=== PATIENT | female | born 1995 | race Caucasian/White ===

== ENCOUNTER 2020-10-31 11:46 | Outpatient (REF) | payer OTHER, SELFPAY ==
[2020-10-31 12:03] LABS: COVID-19 Test Negative (Negative); IDNOW Serial# 55D5AD1C
== END 2020-10-31 11:47 | disposition home or self-care (01) ==
LOC: HO.EMPCOV 11:46
PROVIDERS: Visit Provider Internal Medicine
DX: Z20.828 Contact with and (suspected) exposure to other viral communicable diseases (principal)
CPT/HCPCS: 87635; C9803

== ENCOUNTER 2020-12-15 10:46 | Outpatient (REF) | payer OTHER, SELFPAY ==
[2020-12-15 13:56] LABS: MANUAL DIFF FLAG NO
[2020-12-15 14:11] LABS: Basophils Percent Auto 0.6 % (0-2); Eosinophils Absolute Auto 0.1 X10*3/uL (0.0-0.4); Eosinophils Percent Auto 1.8 % (0-4); Hematocrit 37.3 % (37-47); Hemoglobin 12.1 g/dl (12.0-16.0); Imm Gran Abs Auto 0.01 X10*3/uL (0.00-0.03); Imm Gran Pct Auto 0.2 % (0.0-0.4); Lymphocytes Absolute Auto 2.3 X10*3/uL (1.2-4.9); Lymphocytes Percent Auto 45.3 % (20-40); Mean Corpuscular HGB Conc 32.4 g/dl (31.0-35.0); Mean Corpuscular Hemoglobin 28.2 pg (27.0-33.0); Mean Corpuscular Volume 86.9 fL (80-98); Mean Platelet Volume 11.3 fL (9.4-12.3); Monocytes Absolute Auto 0.3 X10*3/uL (0.1-1.2); Monocytes Percent Auto 6.1 % (2-11); Neutrophils Absolute Auto 2.3 X10*3/uL (2.0-8.3); Platelet Count 216 X10*3/uL (160-400); Red Blood Count 4.29 X10*6/uL (4.20-5.50); Red Cell Distribution Width 12.3 % (11.0-16.0); White Blood Count 5.1 X10*3/uL (4.8-10.8)
[2020-12-15 14:53] LABS: Free T4 (Free Thyroxine) 0.87 ng/dL (0.71-1.85); Thyroid Stimulating Hormone 1.01 uIU/mL (0.32-4.0); Vitamin D 25-OH Total 15.4 ng/mL (>30)
[2020-12-15 14:56] LABS: Alanine Aminotransferase 11 U/L (0-31); Albumin Level 4.2 g/dL (3.5-5.0); Alkaline Phosphatase 68 U/L (39-117); Anion Gap 12 (12-20); Aspartate Amino Transferase 15 U/L (5-31); Bilirubin Total < 0.2 mg/dL (0.0-1.0); Blood Urea Nitrogen 11 mg/dL (9-16); Calcium 8.9 mg/dL (8.4-10.2); Carbon Dioxide 27 mmol/L (22-29); Chloride 104 mmol/L (96-108); Cholesterol 220 mg/dL; Estimated Glomerular Filt Rate > 60; Glucose Fasting 81 mg/dL (60-99); HDL Cholesterol 72 mg/dL; LDL Cholesterol Calculated 119 mg/dl; Sodium 139 mmol/L (135-145); Total Protein 6.9 g/dL (6.5-8.0); Triglycerides 149 mg/dL
== END 2020-12-15 10:47 | disposition home or self-care (01) ==
LOC: HO.10HDL 10:46
PROVIDERS: Visit Provider Internal Medicine
DX: Z00.00 Encounter for general adult medical examination without abnormal findings (principal); E55.9 Vitamin D deficiency, unspecified; R63.5 Abnormal weight gain
CPT/HCPCS: 36415; 80053; 80061; 82306; 84439; 84443; 85025

== ENCOUNTER → 2021-06-22 07:59 | Outpatient (BNVA) | payer OTHER, SELFPAY | PROVIDERS: Visit Provider Internal Medicine | DX: Z76.89 Persons encountering health services in other specified circumstances (principal) | CPT/HCPCS: 99203 ==

== ENCOUNTER 2021-07-24 17:00 | Outpatient (RCR) | payer OTHER, SELFPAY ==
--- NOTE | 2021-06-26 18:26 | MHC.PT.EP ---
[facility] [place] [facility] [place] [facility] [place] Office [address] Spann [address] [phone] F: [phone] F: [phone] F: [phone] F: [phone] Physical Therapy Plan of Care Date of Evaluation: Date of Surgery: N/A Diagnosis: L shoulder derangement/cervical strain Assessment: Pt is a 25yo F who presents to PT after getting injured at work. She is TTP with pain localized to L pec. She presents with current impairments in pain, ROM, soft tissue restricions, strength, endurance, and posture. She is limited functionally by reaching her arm across her body and ADLs. Her signs and symptoms may be consistent with a pec strain. She is an excellent candidate for skilled PT services to address current impairments and facilitate return to pain-free PLOF. Frequency and Duration: The patient will be seen 2x/week for 4 weeks Short Term Goals: Pt will be I with HEP to promote self management of symptoms Pt will improve postural awareness throughout work related tasks Mcfp Goals: Pt will demonstrate full, pain-free strength and ROM throughout L shoulder Pt will perform ADLs with pain < 2/10 consistently Pt will demonstrate improvements in functional mobility as evidenced by statistically significant improvement in SPADI outcome measure. Treatment Plan: Modalities to reduce pain, spasms and effusion. Manual therapy to restore motion and function. Therapeutic exercise to improve strength and flexibility. Neuromuscular re-education for posture and balance. Therapeutic activities to return to functional activities of daily living. Electronically signed by: Shana Parmar, PT, DPT Please sign and return to therapist. Thank you for your referral.
--- NOTE | 2021-07-27 15:21 | MHC.PT.DC ---
[facility] [place] [facility] [place] Office [place] Office [address] Luis Carlos Spann [address] [phone] F: [phone] F: [phone] F: [phone] F: [phone] Physical Therapy Discharge Report Diagnosis: L shoulder derangement/cervical strain Date of Surgery: N/A Date of Evaluation: 06/26/21 Date of Discharge: 07/27/21 Treatments to Date: 6 Cancellations to Date: No Shows to Date: Discharge Status: Achieved Goals Improved Function Independent with HEP Discharge Summary: Pt is compliant with HEP and has made excellent progress since SOC. She demonstrates a decrease in pain and improvements in ROM and strength throughout L shoulder. She has improved her SPADI outcome measure from 50/130 on initial evaluation to 2/130 on 07/24/21. She is being D/C from skilled PT services as she has reached her STGs and LTGs and is I with her HEP. She has printed copy of HEP and RTB. Pt reports no further questions or concerns for PT at this time. Electronically signed by: Shana Parmar, PT, DPT Please sign and return to therapist. Thank you for your referral.
== END 2021-07-27 15:22 | disposition home or self-care (01) ==
LOC: HO.PT 17:00
PROVIDERS: Visit Provider Physician Assistant Medical
DX: S16.1XXD Strain of muscle, fascia and tendon at neck level, subsequent encounter (principal); S49.92XD Unspecified injury of left shoulder and upper arm, subsequent encounter
CPT/HCPCS: 97110; 97140; 97161

== ENCOUNTER 2022-01-18 07:55 | Outpatient (REF) | payer OTHER, SELFPAY ==
[2022-01-18 08:08] LABS: MANUAL DIFF FLAG NO
[2022-01-18 08:48] LABS: Basophils Percent Auto 0.6 % (0-2); Eosinophils Absolute Auto 0.1 X10*3/uL (0.0-0.4); Eosinophils Percent Auto 2.1 % (0-4); Hematocrit 40.5 % (37.0-47.0); Hemoglobin 13.3 g/dl (12.0-16.0); Imm Gran Abs Auto 0.01 X10*3/uL (0.00-0.03); Imm Gran Pct Auto 0.1 % (0.0-0.4); Lymphocytes Absolute Auto 2.6 X10*3/uL (1.2-4.9); Lymphocytes Percent Auto 38.7 % (20-40); Mean Corpuscular HGB Conc 32.8 g/dl (31.0-35.0); Mean Corpuscular Hemoglobin 28.5 pg (27.0-33.0); Mean Corpuscular Volume 86.7 fL (80.0-98.0); Mean Platelet Volume 11.1 fL (9.4-12.3); Monocytes Absolute Auto 0.5 X10*3/uL (0.1-1.2); Monocytes Percent Auto 7.3 % (2-11); Neutrophils Absolute Auto 3.4 x10*3/uL (2.0-8.3); Neutrophils Percent Auto 51.2 % (45-73); Platelet Count 276 X10*3/uL (160-400); Red Blood Count 4.67 X10*6/uL (4.20-5.50); Red Cell Distribution Width 12.1 % (11.0-16.0); White Blood Count 6.7 X10*3/uL (4.8-10.8)
[2022-01-18 10:11] LABS: Alanine Aminotransferase 10 U/L (0-31); Albumin Level 4.5 g/dL (3.5-5.0); Alkaline Phosphatase 67 U/L (39-117); Anion Gap 14 (12-20); Aspartate Amino Transferase 15 U/L (5-31); Bilirubin Total 0.5 mg/dL (0.0-1.0); Blood Urea Nitrogen 14 mg/dL (9-16); Calcium 9.8 mg/dL (8.4-10.2); Carbon Dioxide 23 mmol/L (22-29); Chloride 105 mmol/L (96-108); Cholesterol 258 mg/dL; Estimated Glomerular Filt Rate > 60; Glucose Fasting 80 mg/dL (60-99); HDL Cholesterol 76 mg/dL; LDL Cholesterol Calculated 157 mg/dl; Potassium 4.3 mmol/L (3.3-5.1); Sodium 138 mmol/L (135-145); Total Protein 7.3 g/dL (6.5-8.0); Triglycerides 128 mg/dL
[2022-01-18 10:37] LABS: Thyroid Stimulating Hormone 1.12 uIU/mL (0.32-4.0); Vitamin D 25-OH Total 14.6 ng/mL (>30)
== END 2022-01-18 07:56 | disposition home or self-care (01) ==
LOC: HO.LAB 07:55
PROVIDERS: PCP Internal Medicine; Visit Provider Internal Medicine
DX: Z00.00 Encounter for general adult medical examination without abnormal findings (principal); E55.9 Vitamin D deficiency, unspecified
CPT/HCPCS: 36415; 80053; 80061; 82306; 84443; 85025

== ENCOUNTER 2022-04-04 14:36 | Outpatient (REF) | payer OTHER, SELFPAY | END 2022-04-04 14:37 | disposition home or self-care (01) | LOC: HO.LAB 14:36 | PROVIDERS: PCP Internal Medicine; Visit Provider Obstetrics & Gynecology | DX: Z01.419 Encounter for gynecological examination (general) (routine) without abnormal findings (principal) | CPT/HCPCS: 88142 ==

== ENCOUNTER 2022-07-18 10:08 | Emergency (ER) | payer OTHER, SELFPAY ==
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
[2022-07-18 10:43] VITALS: BP 131/86; PULSE 88; RESP 16; TEMP 36.8; O2SAT 99; BMI 33.7
== END 2022-07-18 16:47 | disposition left against medical advice (07) ==
PROVIDERS: Emergency Provider Emergency Medicine; PCP Internal Medicine
DX: S39.92XA Unspecified injury of lower back, initial encounter (principal); S89.91XA Unspecified injury of right lower leg, initial encounter; V49.9XXA Car occupant (driver) (passenger) injured in unspecified traffic accident, initial encounter; R51.9 Headache, unspecified; Y93.9 Activity, unspecified; Y92.9 Unspecified place or not applicable; Y99.9 Unspecified external cause status
CPT/HCPCS: 70450; 72100; 73562; 99281; 99284

== ENCOUNTER → 2022-08-29 09:15 | Outpatient (RCR) | payer OTHER, SELFPAY ==
[2020-09-21 06:39] LABS: COVID-19 Test Negative (Negative)
[2020-09-27 09:20] LABS: COVID-19 Test Negative (Negative); IDNOW Serial# 55D5AD1C
[2020-10-04 10:27] LABS: COVID-19 Test Negative (Negative)
[2020-10-18 09:28] LABS: COVID-19 Test Negative (Negative); IDNOW Serial# 55D5AD1C
[2020-11-17 09:21] LABS: SARS-COV-2 PCR UMBRL Not Detected
== END | disposition home or self-care (01) ==
LOC: HO.EMPCOV 09-21 06:00
PROVIDERS: Visit Provider Internal Medicine
DX: Z20.828 Contact with and (suspected) exposure to other viral communicable diseases (principal)
CPT/HCPCS: 36415; 87635; C9803; U0003

== ENCOUNTER 2022-11-23 08:18 | Outpatient (REF) | payer OTHER, SELFPAY ==
[2022-11-23 09:43] LABS: Cholesterol 219 mg/dL; HDL Cholesterol 68 mg/dL; LDL Cholesterol Calculated 137 mg/dl; Triglycerides 70 mg/dL
[2022-11-23 10:01] LABS: Vitamin D 25-OH Total 10.8 ng/mL (>30)
== END 2022-11-23 08:19 | disposition home or self-care (01) ==
LOC: HO.LAB 08:18
PROVIDERS: PCP Internal Medicine; Visit Provider Internal Medicine
DX: E78.00 Pure hypercholesterolemia, unspecified (principal); E55.9 Vitamin D deficiency, unspecified
CPT/HCPCS: 36415; 80061; 82306

== ENCOUNTER 2023-06-04 14:53 | Outpatient (AMB) | payer OTHER, SELFPAY ==
--- NOTE | 2023-06-04 14:55 | A.OFFVIS_ITS ---
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 No complaints. Last Pap smear was in 04/01 was negative [facility] Medical History Anal fissure Surgical History [place] teeth extracted Family History Maternal Aunt Breast CA Social History Patient Tobacco Use Status: Never used Tobacco Female Reproductive History Menstrual Age of Menarche: 10 Duration of menses: 3-5 days Date of last menstrual period: 06/04/23 control method: pills Total pregnancies: 0 Date of last pap smear: 04/05/22 (negative) Review of Systems Const All systems reviewed & are unremarkable except as noted in HPI and below Card Reports as per HPI Resp Reports as per HPI GI Reports as per HPI and Reports no additional complaints Reports as per HPI Physical Exam Vital Signs: Last Vital Signs BP 104/76 06/04/23 14:56 BMI result Body Mass Index 35.3 Const General: cooperative, healthy appearing and comfortable Chest Chest palpation & inspection: normal inspection of the chest and normal palpation of entire chest wall Breast/axilla inspection: normal inspection of the breasts and normal inspection of the axillae Breast/axilla palpation: normal palpation of the breasts, normal palpation of the axillae and no axillary lymphadenopathy Resp Effort & Inspection: normal respiratory effort Auscultation: clear to auscultation bilaterally Percussion: percussion normal Cardio Palpation: normal PMI Rate: regular rate Rhythm: regular rhythm Heart sounds: no murmurs and no rubs Peripheral pulses: Peripheral pulses 2+ throughout GI Inspection: Yes normal to inspection Palpation (GI): Soft to palpation, nontender, no guarding, not rigid and No hepatosplenomegaly present Percussion: Yes normal to percussion Auscultation: normal bowel sounds Rectal Exam - Female: deferred General: Yes bladder normal to palpation External Female Exam: No lesion Speculum Exam - Vagina: normal appearance of the vagina, normal palpation, normal vaginal discharge and not erythematous Speculum Exam - Cervix: normal appearance of the cervix and normal palpation Bimanual exam- vagina & uterus: normal bimanual exam, normal palpation, uterine size normal, bladder normal to palpation, consistency normal and normal palpation Bimanual Exam- Adnexa, other: normal adnexae, no masses and no tenderness Assessment & Plan Assessment & Plan (1) Well woman exam: Code(s): Z01.419 - Encounter for gynecological examination (general) (routine) without abnormal findings Plan: Pap smear not indicated this year. Counseled the patient about the recommended dietary allowance of 1000 mg of Calcium & 600 IU of vitamin D. The patient was instructed to perform monthly self-breast exams , to call for any changes in menstrual patterns and to schedule an annual exam in a year; all questions answered and the patient verbalized understanding. Coding Level of Care Code Est Pt Prev Care 18-39y(72213) Diagnoses Well woman exam Z01.419
[2023-06-04 14:56] VITALS: BP 104/76; BMI 35.3
== END 2023-06-04 15:39 | disposition home or self-care (01) ==
LOC: HO.HWS 14:53
PROVIDERS: PCP Internal Medicine; Visit Provider Obstetrics & Gynecology
DX: Z01.419 Encounter for gynecological examination (general) (routine) without abnormal findings (principal)
CPT/HCPCS: 99395

== ENCOUNTER → 2023-06-04 14:53 | Outpatient (BNVA) | payer OTHER, SELFPAY | PROVIDERS: PCP Internal Medicine; Visit Provider Obstetrics & Gynecology ==

== ENCOUNTER → 2023-11-13 14:00 | Outpatient (BNVA) | payer SELFPAY | PROVIDERS: PCP Internal Medicine ==

== ENCOUNTER 2024-07-20 15:31 | Outpatient (AMB) | payer OTHER, SELFPAY ==
--- NOTE | 2024-07-20 15:46 | A.OFFVIS_ITS ---
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 No complaints. Last Pap was negative in 04/01 [facility] Medical History Anal fissure Surgical History [place] teeth extracted Family History Maternal Aunt Breast CA Social History Patient Tobacco Use Status: Never used Tobacco Female Reproductive History Menstrual Age of Menarche: 10 Date of last menstrual period: 06/29/24 Total pregnancies: 0 Date of last pap smear: 04/05/22 Review of Systems Const All systems reviewed & are unremarkable except as noted in HPI and below Card Reports as per HPI Resp Reports as per HPI GI Reports as per HPI and Reports no additional complaints Reports as per HPI Physical Exam Vital Signs: Last Vital Signs BP 126/78 07/20/24 15:51 BMI result Body Mass Index 37.4 Const General: cooperative, healthy appearing and comfortable Chest Chest palpation & inspection: normal inspection of the chest and normal palpation of entire chest wall Breast/axilla inspection: normal inspection of the breasts and normal inspection of the axillae Breast/axilla palpation: normal palpation of the breasts, normal palpation of the axillae and no axillary lymphadenopathy Resp Effort & Inspection: normal respiratory effort Auscultation: clear to auscultation bilaterally Percussion: percussion normal Cardio Palpation: normal PMI Rate: regular rate Rhythm: regular rhythm Heart sounds: no murmurs and no rubs Peripheral pulses: Peripheral pulses 2+ throughout GI Inspection: Yes normal to inspection Palpation (GI): Soft to palpation, nontender, no guarding, not rigid and No hepatosplenomegaly present Percussion: Yes normal to percussion Auscultation: normal bowel sounds Rectal Exam - Female: deferred General: Yes bladder normal to palpation External Female Exam: No lesion Speculum Exam - Vagina: normal appearance of the vagina, normal palpation, normal vaginal discharge and not erythematous Speculum Exam - Cervix: normal appearance of the cervix and normal palpation Bimanual exam- vagina & uterus: normal bimanual exam, normal palpation, uterine size normal, bladder normal to palpation, consistency normal and normal palpation Bimanual Exam- Adnexa, other: normal adnexae, no masses and no tenderness Assessment & Plan Assessment & Plan (1) Well woman exam: Code(s): Z01.419 - Encounter for gynecological examination (general) (routine) without abnormal findings Category: Medical Plan: Cotesting done. Counseled the patient about the recommended dietary allowance of 1000 mg of Calcium & 600 IU of vitamin D. The patient was instructed to perform monthly self-breast exams and to schedule an annual exam in a year; All questions answered and the patient verbalized understanding. Instructed the patient to schedule annual exam in a year Coding Level of Care Code Est Pt Prev Care 18-39y(21346) Diagnoses Well woman exam Z01.419
[2024-07-20 15:51] VITALS: BP 126/78; BMI 37.4
== END 2024-07-20 16:11 | disposition home or self-care (01) ==
PROVIDERS: PCP Internal Medicine; Visit Provider Obstetrics & Gynecology
DX: Z01.419 Encounter for gynecological examination (general) (routine) without abnormal findings (principal)
CPT/HCPCS: 99395

== ENCOUNTER → 2024-07-20 15:31 | Outpatient (BNVA) | payer OTHER, SELFPAY | PROVIDERS: PCP Internal Medicine; Visit Provider Obstetrics & Gynecology ==

== ENCOUNTER 2024-08-14 12:05 | Outpatient (REF) | payer OTHER, SELFPAY ==
[2024-08-14 12:21] LABS: IDNOW Serial# 08D9AD1C; Strep A Nucleic Acid Negative (Negative)
== END 2024-08-14 12:06 | disposition home or self-care (01) ==
LOC: HO.LNP 12:05
PROVIDERS: Visit Provider Internal Medicine
DX: J02.9 Acute pharyngitis, unspecified (principal)
CPT/HCPCS: 87651

== ENCOUNTER 2025-07-30 16:14 | Outpatient (REF) | payer OTHER, SELFPAY ==
--- OUTSIDE RECORDS SUMMARY | 2025-07-30 13:19 | XMS_ITS | Clinical Summary ---
Author Organization [facility] Address [address] [place] [id number] Phone Care Team Providers Care Product Safety Engineer Name Role Phone Unavailable Primary Care Provider Unavailabl e Immunizations Immunization Administration Dates Next Due DTP 04/05/1995, 4,01/16/1994, 993 DTaP 5 12/22/1998 HPV, Quadrivalent 05/18/2010,01/16/2010,09/03/20 08 Hep B, ped/adol 03/21/1994,1993,1993 Hib (PRP-T) 12/25/1994, 4,01/16/1994, 993 Influenza Split 07/28/2012 Influenza, injectable, trivalent 09/03/2008 MMR 03/10/1998,12/25/1994 Meningococcal Conj (Menactra) MCV4P 09/03/2008 OPV 12/22/1998, 4,01/16/1994, 993 Tdap 09/04/2006 Family History Relation Name Status Comments Brother Alive Brother: Alive and well Father Alive Father: Chron's /Gout Maternal Grandfather Alive Materna l grandfather: Diabetes/Heart disease Mother Alive Mother: Alive a nd well Other Family history of *Dental caries, Family history of *Sudden /[place] under 55, Family history of *Heart Disease, No family history of *CVA/Stroke Social History Tobacco Use Types Packs/Day Years Used Date Smoking Tobacco: Never Comments:Never smoker Comments Unknown Sex and Gender Information Value Date Recorded Sex Assigned at Not on file Legal Sex Female 4:42 PM EDT Gender Identity Not on file Sexual Orientation Not on file Last Filed Vital Signs Vital Sign Reading Time Taken Comments Blood Pressure 116/68 01/15/2014 12:00 AM EST Pulse 68 11/16/2013 12:00 AM EST Temperature 36.6 C (97.9 F) 11/16/2013 12:00 AM EST Respiratory Rate - - Oxygen Saturation - - Inhaled Oxygen Concentration - - Weight 74.4 kg (164 lb) 01/15/2014 12:00 AM EST Height 166.4 cm (5' 5.5 ) 01/15/2014 12:00 AM ES T Body Mass Index 26.88 01/15/2014 12:00 AM EST Plan of Treatment Health Maintenance Due Date Last Done Comments Varicella Vaccines (1 of 2 - 13+ 2-dose series) 2006 DTaP,Tdap,and Td Vaccines (7 - Td or Tdap) 09/04/2016 09/04/2006, 12/22/1998, 04/05/1995, Additional history exists Influenza Vaccines (#1) 2025 07/28/2012, 09/03 COVID-19 Vaccine ( season) 2025 Hepatitis B Vaccines Completed 03/21/1994, 1993, 1993 HIB Vaccines Completed 12/25/1994, 03/11, 01/16/1994, Additional history exists MMR Vaccines Completed 03/10/1998, 12/25/1994 IPV Vaccines Completed 12/22/1998, 03/11, 01/16/1994, Additional history exists Meningococcal Vaccine Aged Out 09/03/2008 No shilo shyam eligible based on patient's age to complete this topic HPV Vaccines Completed 05/18/2010, 06/2010, 09/03/2008 Hepatitis A Vaccines Aged Out No long er eligible based on patient's age to complete this topic Men B Vaccine Aged Out No longer elig ible based on patient's age to complete this topic Pneumococcal Vaccine Aged Out No long er eligible based on patient's age to complete this topic Procedures * Due to [place] law, this organization might not be sharing sensitive test results. Procedure Name Priority Date/Time Associated Diagnosis Comments CHLAMYDIA AND GONORRHEA, AMPLIFIED Routine 01/18/2014 2:14 PM EDT from Last 3 Months or Most Recently Relevant to Health Maintenance Results * Due to [place] law, this organization might not be sharing sensitive test results. * Chlamydia and Gonorrhoea, Amplified (01/18/2014 2:14 PM EDT) URINE GC AMP PROBE NEGATIVE [facility] Comment: NO NEISSERIA GONORRHOEAE RNA DETECTED IN THIS PATIENT'S SAMPLE. (REFERENCE RANGE/NORMAL VALUE: NOT DETECTED) NOTE: This test uses nuclear monitoring technician-mediated amplification method to detect rRNA from C.Trachomatis and N.Gonorrhoeae. A negative result does not preclude infection. In the case of a negative urine result, testing of an endocervical(female) or urethral(male) specimen is recommended if there is high clinical suspicion of infection. The performance characteristics of this test have not been evaluated in children. The Aptima Combo2 assay is not intended for the evaluation of suspected sexual abuse or for other medico-legal indications. The ordering provider should assess if the patient had consensual sex without risk of sexual abuse. Consult the [facility] if needed. Contact phone number . Therapeutic failure or success cannot be determined with the Aptima Combo2 assay since nucleic acid may persist following appropriate antimicrobial therapy. The Centers for Disease Control and Prevention (CDC) recommends confirmatory retesting using culture or a different nucleic acid amplification test when positive results occur, if indicated. Testing performed or reported by [facility], a Service of [facility], [address] [place] [address] Sergio Jones, Motorcycle Delivery Driver URINE CHLAMYDIA AMP PROBE NEGATIVE [facility] Comment: NO CHLAMYDIA TRACHOMATIS RNA DETECTED IN THIS PATIENT'S SAMPLE. (REFERENCE RANGE/NORMAL VALUE: NOT DETECTED) 01/18/2014 2:14 PM EDT Narrative [facility] - 01/18/2014 2:14 PM EDT URINE CHLAMYDIA GC AMP PROBE us Diann Trimble MD LAB MICROBIOLOGY - GENERAL ORDERABLES Final Result [facility] [address] [place] [id number], from Last 3 Months or Most Recently Relevant to Health Maintenance
--- OUTSIDE RECORDS SUMMARY | 2025-07-30 13:19 | XMS_ITS | Encounter Summary ---
Author Organization [facility] Address [address] [place] [address] Phone Care Team Providers Care Tailings Dam Laborer Name Role Phone Diann Trimble MD Primary Care Provider Encounter Details Date Type Department Care Team (Late st Contact Info) Description 06/08/2014 Documentation [facility] [place] Family Medicine [address] [place] [address] Family Medicine, Physician [address] [place], [place] [id number] Social History Tobacco Use Types Packs/Day Years Used Date Smoking Tobacco: Never Assessed Comments Unknown Sex and Gender Information Value Date Recorded Sex Assigned at Not on file Legal Sex Female 4:42 PM EDT Gender Identity Not on file Sexual Orientation Not on file documented as of this encounter Plan of Treatment Not on file documented as of this encounter Visit Diagnoses Not on filedocumented in this encounter Care Teams Tailings Dam Laborer Relationship Specialty Start Date End Date Diann Trimble MD [address] [place] [address] BARBRA Mcconnell [address] PCP - General 06/21/17 02/26/23 documented as of this encounter
--- OUTSIDE RECORDS SUMMARY | 2025-07-30 13:19 | XMS_ITS | Encounter Summary ---
Author Organization [facility] Address [address] [place] [phone] Phone Care Team Providers Care Emergency Medcl Emt Name Role Phone Diann Trimble MD Primary Care Provider Encounter Details Date Type Department Care Team (Late st Contact Info) Description 11/24/2014 Documentation [facility] [place] Family Medicine [address] [place] [address] Family Medicine, Physician [address] [place], [place] [id number] Social History Tobacco Use Types Packs/Day Years [...] on filedocumented in this encounter Care Teams Emergency Medcl Emt Relationship Specialty Start Date End Date Diann Trimble MD [address] [place] [address] BARBRA Mcconnell [address] PCP - General 06/21/17 02/26/23 documented as of this encounter
--- OUTSIDE RECORDS SUMMARY | 2025-07-30 13:19 | XMS_ITS | Encounter Summary ---
Author Organization [facility] Address [address] [place] [address] Phone Care Team Providers Care Residential Construction Instructor Name Role Phone Diann Trimble MD Primary Care Provider Encounter Details Date Type Department Care Team (Late st Contact Info) Description 06/27/2017 Conversion Encounter [facility] [place] [address] [place] [address] Social History Tobacco Use Types Packs/Day Years [...] on filedocumented in this encounter Care Teams Residential Construction Instructor Relationship Specialty Start Date End Date Diann Trimble MD [address] [facility] [place] [place] [address] PCP - General 06/21/17 02/26/23 documented as of this encounter
== END 2025-07-30 16:15 | disposition home or self-care (01) ==
LOC: HO.HOSX 16:14
PROVIDERS: Visit Provider Physician Assistant
DX: Z13.89 Encounter for screening for other disorder (principal)

== ENCOUNTER 2025-09-24 11:16 | Outpatient (AMB) | payer OTHER, SELFPAY ==
--- NOTE | 2025-09-24 11:27 | A.OFFPC_ITS ---
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 Accompanied by: Self / Same As Patient Patient : Yes (7 weeks) Allergies No Known Allergies (No Known Allergies*) Allergy (Verified 09/24/25 11:27) Tobacco use date assessed: 09/24/25 Dental Screening Dental Screen Date: 09/24/25 Did you have a dental visit in the last 12 months?: Yes Did you have a dental problem in the last 6 months where you did not have access to dental care?: No Was dental information given to patient?: Patient has dentist HPI HPI Comments History of Present Illness Details The patient is a 30-year-old female who presents for an initial visit to pending sale to [facility], for management of her new , and evaluation of a cold sore. She is 7 weeks and 4 days with her first child, which was discovered on August 29. Her first official obstetrics appointment is scheduled for the of the month, with the first ultrasound on October 22. The patient reports an outbreak of a cold sore, which she noticed last night. She experiences outbreaks once or twice a year, and they typically last about five days and resolve without warning signs. For the current outbreak, she noted chapped lips and a tight sensation, but no tingling. Past medical history is significant for an anal fissure repair surgery in 2016 or 2017. She has a history of vitamin D deficiency, although her 2022 labs showed borderline levels. Her Pap smear is up to date. Family history includes a maternal aunt with breast cancer, though the patient's mother tested negative for a genetic predisposition. Her father, who from [place] [address] in 2021, had Crohn's disease and gout. Her mother is a chain smoker and has a family history of skin cancer. The patient denies any known allergies. She does not drink alcohol, smoke, or use illicit drugs. Medical History: - Herpes labialis, with outbreaks 1-2 ti mes per year. - Vitamin D deficiency, with borderline levels on 2023 labs. - Anal fissure, status post-surgical rep air. Surgical History: - Anal fissure repair (2017 or 2018) Medications: - Blistex topical ointment for cold sore , started this morning. Family History: - Maternal aunt: Breast cancer. - Father (): Crohn's disease, go ut. - Mother: Chain smoker. - Maternal family: Skin cancer. Diagnostic Results: - Pap smear: Up to date. - Labs (2022): Vitamin D level was borde rline. Social History: - Substance Use: Denies alcohol, tobacco , and illicit drug use. - Family Planning: Currently wi th her first child. [facility] Medical History (Updated 09/24/25 @ 11:48 by Jaquan Lizarraga MD) Annual physical exam Vitamin D deficiency Herpes labialis Anal fissure Surgical History Ary teeth extracted Family History Maternal Aunt Breast CA Social History Housing: House Patient Tobacco Use Status: Never used Tobacco e-Cigarette/Vaping Use: Never Used Patient : Yes (7 weeks) Current occupational status: employed Current occupation: [employer] Female Reproductive History Menstrual Age of Menarche: 10 Questionnaire PHQ-9 Over the last 2 weeks, how often have you been bothered by any of the following problems? 1. Little interest or pleasure in doing things: not at all 2. Feeling down, depressed, or hopeless: not at all 3. Trouble falling or staying asleep, or sleeping too much: not at all 4. Feeling tired or having little energy: several days 5. Poor appetite or overeating: not at all 6. Feeling bad about yourself - or that you are a failure or have let yourself or your family down: not at all 7. Trouble concentrating on things, such as reading the newspaper or watching television: not at all 8. Moving or speaking so slowly that other people could have noticed. Or the opposite - being so fidgety or restless that you have been moving around a lot more than usual: not at all Depression Screening Interpretation: Negative Depression Screening Done: Yes 09060 - PHQ-9 Billing: Yes Source: Developed by Drs. Rodney Johnson, Tran Shaffer, Gaetano Alvarado and colleagues, with an educational juancarlos from [employer]. Thrive Questionnaire Date Thrive assessed: 09/24/25 I am a: Patient What is your living situation today?: I have a steady place to live Within the past 12 months, did the food you bought not last and you didn't have the money to get more?: Never true Within the past 12 months, did you worry whether your food would run out before you got money to buy more?: Never true Do you have trouble paying for medicines?: No Do you have trouble getting transportation to medical appointments?: No Do you have trouble paying your heating and electricity bill?: No Do you have trouble taking care of your child, family member or friend?: No Do you have trouble with day-to-day activities such as bathing, preparing meals, shopping, managing finances, etc.?: No Are you currently unemployed and looking for a job?: No Are you interested in more education?: No THRIVE Score: 0 AUDIT C Alcohol Use Questionnaire (AUDIT-C) 1. How often do you have a drink containing alcohol?: Never 3. How often do you have six or more drinks on one occasion?: Never Total Score: 0 Score Reviewed/Action Taken: Yes INDERJIT-7 AMB Questionnaire INDERJIT-7 Date INDERJIT - 7 assessed: 09/24/25 Feeling nervous, anxious, or on edge: 0 = Not at all Not being able to stop or control worryin = Not at all Worrying too much about different things: 0 = Not at all Trouble relaxin = Not at all Being so restless that it is hard to sit still: 0 = Not at all Becoming easily annoyed or irritable: 0 = Not at all Feeling afraid as if something awful might happen: 0 = Not at all Total INDERJIT-7 score (0-4 normal; 5-9 mild; 10-14 moderate; 15-21 severe): 0 Source: Developed by Drs. Rodney Johnson, Gaetano Bustamante and colleagues, with an educational juancarlos from [employer]. INDERJIT-7 Assessment Billing INDERJIT-7 Assessment Tool: INDERJIT-7 Assessment 34304 Review of Systems Narrative - General: Reports breast soreness. - Skin: Reports a cold sore on her lip. - GI: Reports feeling 'changes' in her stomach. Denies abdominal pain or discomfort. - : Reports increased urinary frequency. - Musculoskeletal: Denies swelling in the legs. All systems reviewed & are unremarkable except as reviewed in HPI and above Physical exam (Primary Care) Vital Signs: Last Vital Signs Temp 96.9 F 09/24/25 11:28 Pulse 96 09/24/25 11:28 Resp 16 09/24/25 11:28 BP 110/70 09/24/25 11:28 Pulse Ox 98 09/24/25 11:28 Oxygen Delivery Method Room Air 09/24/25 11:28 BMI result Body Mass Index 35.3 Tobacco/Smoking Status: Tobacco use Status Tobacco use date assessed 09/24/25 09/24/25 11:34 Patient Tobacco Use Status Never used Tobacco 09/24/25 11:34 e-Cigarette/Vaping Use Never Used 09/24/25 11:34 Depression Screening Interpretation: Negative Thrive Assessment: Date of Thrive Assessment Date Thrive assessed 09/24/25 09/24/25 11:40 Narrative General: +Alert and oriented, Well nourished, No acute distress. Eye: Pupils are equal, round and reactive to light, Intact accommodation, Extraocular movements are intact, Normal conjunctiva, Vision unchanged. HENT: Normocephalic, Atraumatic, Tympanic membranes are clear, Normal hearing, Oral mucosa is moist, No pharyngeal erythema, Ear canals patent. Respiratory: Lungs CTA bilaterally, No wheeze, Respirations are non-labored. Cardiovascular: Regular rate, Regular rhythm, S1 auscultated, S2 auscultated, No murmur, Good pulses equal in all extremities, Normal peripheral perfusion, No edema. Gastrointestinal: Soft, Non-tender, Non-distended, Normal bowel sounds, No organomegaly. Musculoskeletal: Normal range of motion, Normal strength, No tenderness, No swelling, No deformity, Normal gait. Integumentary: Warm, Dry, [place], Intact. Neurologic: Alert, Oriented, Normal sensory, Normal motor function, No focal defects, Cranial Nerves II-XII are grossly intact, Normal deep tendon reflexes. Psychiatric: Cooperative, Appropriate mood & affect, Normal judgment. Coding Level of Care Code New Pt Level 3 (00628) New Pt Prev Care 18-39yr(09753 Diagnoses 8 weeks gestation of Z3A.08 Weeks of gestation: 8 weeks Herpes labialis B00.1 Vitamin D deficiency E55.9 Annual physical exam Z00.00 Additional Codes INDERJIT-7 Assessment Billing - INDERJIT-7 Assessment Tool: INDERJIT-7 Assessment 46981 ([id number]) PHQ-9 - 54730 - PHQ-9 Billing: Yes ([id number]) Comment [id number] Assessment & Plan Assessment & Plan (1) : Comment: - The patient is 7 weeks and 4 days with her first child. - A comprehensive lab panel has been ordered to establish a baseline, including a CBC, electrolytes, syphilis, HIV, cholesterol, glucose, iron profile, B12, folate, and beta-HCG. - The patient has her first OB visit scheduled for the of the month. Code(s): Z34.90 - Encounter for supervision of normal , unspecified, unspecified trimester Category: Medical Qualifiers: Weeks of gestation: 8 weeks Qualified Code(s): Z3A.08 - 8 weeks gestation of (2) Herpes labialis: Comment: - The patient has a current outbreak. - She should start with a topical ointment (Blistex) five times a day. - A prescription for valacyclovir has been sent to the pharmacy as a backup if the ointment is ineffective, with instructions to take it for 5-7 days. - Six refills have been provided for future outbreaks. Code(s): B00.1 - Herpesviral vesicular dermatitis Category: Medical (3) Vitamin D deficiency: Comment: - Given the patient's history and borderline levels in 2022, a vitamin D level check is included in the lab orders. - The patient will start taking vitamins. Code(s): E55.9 - Vitamin D deficiency, unspecified Category: Medical (4) Annual physical exam: Comment: - The patient's Pap smear is up to date. - She was advised to discuss the safety of receiving the flu and COVID-19 vaccines with her OB provider. Code(s): Z00.00 - Encounter for general adult medical examination without abnormal findings Category: Medical Plan: Health Maintenance: - A comprehensive lab panel was ordered including CBC, electrolytes, syphilis, HIV, cholesterol, glucose, iron profile, B12, folate, thyroid stimulating hormone, and HCG. - Pap smear is up to date. - Discussed flu and COVID-19 vaccinations; advised to consult with her OB provider regarding safety during . Patient was informed and verbally consented to the use of an ambient scribe for clinic note documentation during this visit. Vital signs reviewed. Comprehensive history, review of systems, and physical exam completed. Medications, allergies, and problem list reviewed and updated. Counseling provided on nutrition, regular exercise, sleep hygiene, and moderation of alcohol use. Discussed age-appropriate screenings (mammogram, colonoscopy, Pap, bone density) and immunizations (flu, COVID, shingles, Tdap). Screened for depression, fall risk, and home safety; no current concerns. Discussed stress management, dental and vision care, and importance of ongoing preventive follow-up. Routine labs ordered for metabolic and lipid screening. Patient educated on healthy lifestyle and agrees with the plan. Plan I saw the patient for an initial visit to establish care. We discussed her recent , currently at 7 weeks and 4 days gestation, and I ordered a full panel of labs to establish a baseline before her first OB appointment on the . We also addressed her current cold sore outbreak. I advised her to start with a topical ointment she had already purchased, which is safe, and I sent a prescription for oral Valacyclovir as a backup, with refills, should the ointment not be effective. We reviewed her history of vitamin D deficiency, and this will be rechecked in her labs. I advised her to ask her OB about getting the flu and COVID shots. I informed her that future follow-up visits can be conducted over the phone. Orders: Orders Complete Blood Count Auto Diff Today Z00.00 - Encounter for general adult medical examination without abnormal findings Hemoglobin A1c Today Z00.00 - Encounter for general adult medical examination without abnormal findings Hepatitis A,B,C Profile Today Z00.00 - Encounter for general adult medical examination without abnormal findings Lipid Panel Today Z00.00 - Encounter for general adult medical examination without abnormal findings Microalbumin, Random (w Creat) Today Z00.00 - Encounter for general adult medical examination without abnormal findings Syphilis Screen Today Z00.00 - Encounter for general adult medical examination without abnormal findings Vitamin D 25-OH Total Today Z00.00 - Encounter for general adult medical examination without abnormal findings Vitamin B12 and Folate Today Z34.90 - Encounter for supervision of normal , unspecified, unspecified trimester Comprehensive Met. Panel Today Z00.00 - Encounter for general adult medical examination without abnormal findings TSH reflex Free T4 Today Z00.00 - Encounter for general adult medical examination without abnormal findings HIV Ab/Ag Today Z00.00 - Encounter for general adult medical examination without abnormal findings IRON PROFILE Today Z34.90 - Encounter for supervision of normal , unspecified, unspecified trimester HCG Quantitative Today Z34.90 - Encounter for supervision of normal , unspecified, unspecified trimester Medications: New valacyclovir 1,000 mg PO BID 14 tabs 6RF 7 days Patient Instructions: - Please go to the lab to have your blood drawn for the tests we ordered. - Start using the Blistex ointment for your cold sore, applying it five times a day. It may take about 10 days to work. - If the ointment does not help, you can mixing picker tender the prescription for Valacyclovir pills at your pharmacy. This is to be taken for five to seven days. - Begin taking vitamins. - Keep your scheduled obstetrics appointment on the 18 for your first visit. - Ask your OB doctor if it is safe for you to get the flu and COVID-19 shots during your . - Future follow-up appointments can be scheduled as phone visits.
[2025-09-24 11:28] VITALS: BP 110/70; PULSE 96; RESP 16; TEMP 36.1; O2SAT 98; BMI 35.3
== END 2025-09-24 11:49 | disposition home or self-care (01) ==
PROVIDERS: PCP Student in an Organized Health Care Education/Training Program; Visit Provider Student in an Organized Health Care Education/Training Program
DX: Z00.00 Encounter for general adult medical examination without abnormal findings (principal); Z3A.08 8 weeks gestation of pregnancy; B00.1 Herpesviral vesicular dermatitis; E55.9 Vitamin D deficiency, unspecified

== ENCOUNTER 2025-09-24 11:49 | Outpatient (REF) | payer OTHER, SELFPAY ==
[2025-09-24 13:14] LABS: MANUAL DIFF FLAG NO
[2025-09-24 13:22] LABS: Hematocrit 36.4 % (37.0-47.0); Hemoglobin 12.1 g/dl (12.0-16.0); Imm Gran Abs Auto 0.02 X10*3/uL (0.00-0.03); Imm Gran Pct Auto 0.3 % (0.0-0.4); Lymphocytes Absolute Auto 1.9 X10*3/uL (1.2-4.9); Mean Corpuscular HGB Conc 33.2 g/dl (31.0-35.0); Mean Corpuscular Hemoglobin 28.5 pg (27.0-33.0); Mean Corpuscular Volume 85.8 fL (80.0-98.0); NRBC Abs Auto 0.000 X10*3/uL (0.0-0.012); NRBC Pct Auto 0.0 /100WBC (0.0-0.2); Platelet Count 252 X10*3/uL (160-400); Red Blood Count 4.24 X10*6/uL (4.20-5.50); White Blood Count 7.4 X10*3/uL (4.8-10.8)
[2025-09-24 14:27] LABS: Alanine Aminotransferase 13 U/L (0-31); Albumin Level 4.6 g/dL (3.5-5.0); Alkaline Phosphatase 67 U/L (39-117); Anion Gap 11 (12-20); Aspartate Amino Transferase 20 U/L (5-31); Blood Urea Nitrogen 7 mg/dL (9-16); Calcium 9.4 mg/dL (8.4-10.2); Carbon Dioxide 24 mmol/L (22-29); Chloride 106 mmol/L (96-108); Cholesterol 211 mg/dL (<200); Estimated Glomerular Filt Rate > 60; HDL Cholesterol 61 mg/dL (>40); Iron 82 mcg/dL (30-160); Percent Iron Saturation 27 % (15-50); Potassium 3.6 mmol/L (3.3-5.1); Sodium 137 mmol/L (135-145); Total Iron Binding Capacity 307 mcg/dL (228-428); Total Protein 7.1 g/dL (6.5-8.0); Triglycerides 124 mg/dL (<150); Unsaturated Iron Binding 225 ug/dL
[2025-09-24 14:33] LABS: Microalbum/Creatinine Ratio Ur 6.6 ug/mg cr (<30)
[2025-09-24 14:42] LABS: Folate 14.4 ng/mL (> or = 4.0); Vitamin B12 330 pg/mL (200-900)
[2025-09-24 14:48] LABS: HBS Num1 0.57 mIU/mL (0-7.99); HBc Num1 0.11 S/CO (0.00-0.79); HBsAGNum1 0.59 S/CO (0.00-0.99); HIV Num 1 0.05 S/CO (0.00-0.99); Hepatitis A Antibody IgM 0.19 Index (0-0.79); Hepatitis B Surface Antigen Negative (Negative); ~HepC Num1 0.08 S/CO (0.00-0.79); ~Hepatitis A Antibody IgM Nonreactive (Nonreactive); ~Hepatitis B Surface Antibody NONREACTIVE (Nonreactive); ~Hepatitis C Antibody Nonreactive (Nonreactive)
[2025-09-24 15:02] LABS: Syphilis Screen Nonreactive (Nonreactive)
== END 2025-09-24 11:50 | disposition home or self-care (01) ==
LOC: HO.10HDL 11:49
PROVIDERS: Visit Provider Student in an Organized Health Care Education/Training Program
DX: Z00.00 Encounter for general adult medical examination without abnormal findings (principal); Z34.90 Encounter for supervision of normal pregnancy, unspecified, unspecified trimester; Z3A.08 8 weeks gestation of pregnancy; B00.1 Herpesviral vesicular dermatitis; E55.9 Vitamin D deficiency, unspecified
CPT/HCPCS: 36415; 80053; 80061; 82043; 82306; 82570; 82607; 82746; 83036; 83540; 84443; 84702; 85025; 86704; 86706; 86709; 86780; 86803; 87340; 87389; 96127